=== PATIENT | female | born 1995 | race Caucasian/White ===

== ENCOUNTER 2019-05-17 20:23 | Emergency (ER) | payer BC ==
[2019-05-17 20:44] VITALS: BP 111/80
[2019-05-17] MEDS ORDERED: Ondansetron ODT TAB* 4 MG PO ONE (20:48)
--- NOTE | 2019-05-17 21:31 | UC ---
Nausea/Vomiting/Diarrhea HPI - HPI Summary HPI Summary: 23-year-old female who ate at a restaurant last evening approximate 6 hours following that she started having vomiting and diarrhea. She states she's had 7 bouts of vomiting and diarrhea in the past 24 hours. She does not feel like she is lightheaded or dizzy or going to pass out when she is walking. The last time that she had any diarrhea or vomiting was approximately one hour ago. She states today she has had mild burning on urination. - History of Current Complaint Chief Complaint: UCGI Stated Complaint: NAUSEA, POSS FOOD POISONING Time Seen by Provider: 05/17/19 21:06 Hx Obtained From: Patient Hx Last Menstrual Period: 05/10/19 ?: No Onset/Duration: Sudden Onset Timing: Intermittent Episodes Lasting: Severity Initially: Moderate Severity Currently: Mild Pain Intensity: 8 Location: Diffuse Character: Cramping - Patient is pain-free during the exam however she states prior to having a bout of diarrhea she does get abdominal cramping. Aggravating Factor(s): Nothing Alleviating Factor(s): Nothing Nausea/Vomiting Presence: Nauseated, Vomiting - Vomited approximate 1 hour prior to arrival. Vomiting Frequency: Every 3-4 hours Nausea/Vomiting Duration: 12-24 hours Diarrhea Presence: Yes Diarrhea Frequency: Every 3-4 hours Diarrhea Duration: 12-24 hours Diarrhea Characteristics: Watery - Allergies/Home Medications Allergies/Adverse Reactions: Allergies Allergy/AdvReac Type Severity Reaction Status Date / Time No Known Allergies Allergy Verified 05/17/19 20:44 Home Medications: Home Medications Control 1 tab PO DAILY 05/17/19 [History Confirmed 05/17/19] Sertraline* [Zoloft*] 50 mg PO DAILY 05/17/19 [History Confirmed 05/17/19] PMH/Surg Hx/FS Hx/Imm Hx Previously Healthy: Yes - Surgical History Surgical History: Yes Surgery Procedure, Year, and Place: wisdom teeth - Family History Known Family History: Positive: Non-Contributory - Social History Alcohol Use: None Substance Use Type: None Smoking Status (MU): Never Smoked Tobacco Review of Systems All Other Systems Reviewed And Are Negative: Yes Gastrointestinal: Positive: Abdominal Pain - Cramping abdominal pain prior to having bouts of diarrhea however upon my exam here she is pain-free., Vomiting, Diarrhea, Nausea Is Patient Immunocompromised?: No Physical Exam Triage Information Reviewed: Yes Appearance: Well-Appearing, No Pain Distress, Well-Nourished Vital Signs: Initial Vital Signs Temp 99.7 F 05/17/19 20:37 Pulse 97 05/17/19 20:37 Resp 16 05/17/19 20:37 BP 111/80 05/17/19 20:37 Pulse Ox 97 05/17/19 20:37 Vital Signs Reviewed: Yes Eyes: Positive: Conjunctiva Clear ENT: Positive: Hearing grossly normal, Pharynx normal, TMs normal, Uvula midline Neck: Positive: Supple, Nontender, No Lymphadenopathy Respiratory: Positive: Lungs clear, Normal breath sounds, No respiratory distress, No accessory muscle use Cardiovascular: Positive: RRR, No Murmur, Pulses Normal, Brisk Capillary Refill Abdomen Description: Positive: Nontender, No Organomegaly, Soft. Negative: CVA Tenderness (R), CVA Tenderness (L), Distended, Guarding, Hepatomegaly, McBurney' s Point Tenderness, Splenomegaly Bowel Sounds: Positive: Hyperactive Musculoskeletal Exam: Normal Neurological Exam: Normal Psychological Exam: Normal Skin Exam: Normal Naus/Vom/Diarrhea Course/Dx - Course Course Of Treatment: The patient received Zofran 4 mg by mouth here. Urinalysis showed some protein and bilirubin with a specific gravity of 1.030. Patient has been taking liquids here and retaining it. She was given Zofran 4 mg to take at home tonight if she has nausea. She may take loperamide as directed and definite follow up in the emergency room if she gets worse or she feels like she is going to pass out or feels lightheaded. Patient is agreement with this plan of action. - Differential Dx/Diagnosis Provider Diagnosis: Vomiting, Diarrhea Is Visit Related: No Condition At Discharge: Fair Discharge ED - Sign-Out/Discharge Documenting (check all that apply): Patient Departure All imaging exams completed and their final reports reviewed: No Studies - Discharge Plan Condition: Fair Disposition: HOME Prescriptions: Ondansetron TAB* [Zofran 4 MG Tab*] 4 mg PO Q6H PRN #10 tab PRN Reason: Nausea Patient Education Materials: Acute Nausea and Vomiting (ED), Acute Diarrhea (ED ) Referrals: [facility] [Outside] No Primary Care Phys,NOPCP [Primary Care Provider] - Additional Instructions: Clear liquids today, soup and crackers later today when you have no further vomiting then gradually increase to your regular diet. Avoid spicy or fatty foods today. Definite follow up with your primary care provider if no improvement in 1 day. Go to the ER if you feel like you are going to pass out or if you feel lightheaded or dizzy. - Billing Disposition and Condition Condition: FAIR Disposition: Home
[2019-05-17] MEDS ORDERED: Ondansetron ODT TAB* 4 MG SL ONE (21:51)
== END 2019-05-17 22:05 | disposition home or self-care (01) ==
LOC: UCEAST 20:23
DX: R19.7 Diarrhea, unspecified (principal); R11.2 Nausea with vomiting, unspecified; R10.9 Unspecified abdominal pain
CPT/HCPCS: 81003; 84702; 87045; 87046; 87328; 87329; 87899; 99202; A9270-GY; G0463

== ENCOUNTER 2019-05-20 09:35 | Emergency (ER) | payer BC ==
[2019-05-20] MEDS ORDERED: NS 0.9% 1000 ML** 1,000 ML IV ONE (10:34)
--- NOTE | 2019-05-20 11:55 | UC ---
Nausea/Vomiting/Diarrhea HPI - HPI Summary HPI Summary: She was seen here on the for nausea, vomiting and diarrhea. Cultures were sent at that time but have not returned. She was treated with Zofran and loperamide empirically. She has continued to have nausea vomiting diarrhea and is feeling quite bedraggled. - History of Current Complaint Chief Complaint: UCGI Stated Complaint: NAUSEA,CRAMPING,DIARRHEA Time Seen by Provider: 05/20/19 10:15 Hx Obtained From: Patient Hx Last Menstrual Period: 05/10/19 ?: No Onset/Duration: Gradual Onset Timing: Constant Severity Initially: Moderate Severity Currently: Severe Pain Intensity: 8 Character: Cramping Aggravating Factor(s): Nothing Alleviating Factor(s): Other: - Zofran helps with the nausea. Nausea/Vomiting Presence: Nauseated, Vomiting Vomiting Frequency: Every 1-2 hours Nausea/Vomiting Duration: 3-7 days Diarrhea Presence: Yes Diarrhea Frequency: Every 1-2 hours Diarrhea Characteristics: Watery - Allergies/Home Medications Allergies/Adverse Reactions: Allergies Allergy/AdvReac Type Severity Reaction Status Date / Time No Known Allergies Allergy Verified 05/20/19 10:09 Home Medications: Home Medications Loperamide CAP* [Imodium CAP*] 2 mg PO Q4H PRN 05/20/19 [History Confirmed 05/20] PMH/Surg Hx/FS Hx/Imm Hx Previously Healthy: Yes - Surgical History Surgical History: Yes Surgery Procedure, Year, and Place: wisdom teeth - Family History Known Family History: Positive: Non-Contributory - Social History Alcohol Use: None Substance Use Type: None Smoking Status (MU): Never Smoked Tobacco Review of Systems All Other Systems Reviewed And Are Negative: Yes Constitutional: Positive: Negative Skin: Positive: Negative Gastrointestinal: Positive: Abdominal Pain - Cramping, Vomiting, Diarrhea, Nausea Physical Exam - Summary Physical Exam Summary: She is nontoxic in appearance but looks ill. Her vitals are stable Triage Information Reviewed: Yes Appearance: Well-Appearing Vital Signs: Initial Vital Signs Temp 99.3 F 05/20/19 10:03 Pulse 87 05/20/19 10:03 Resp 18 05/20/19 10:03 BP 108/71 05/20/19 10:03 Pulse Ox 98 05/20/19 10:03 Eye Exam: Normal ENT Exam: Normal - Her mucous membranes are dry Neck exam: Normal Abdominal Exam: Other - All Mild diffuse tenderness. Skin Exam: Normal - 00 Naus/Vom/Diarrhea Course/Dx - Course Course Of Treatment: She was given a liter of normal saline here. She wants to be treated empirically for cryptosporidium and Salmonella. Both of these are, in general, self-limited diseases. It's reasonable and a severe case of Salmonella to treat with antibiotics. For an immunocompetent host cryptosporidium needs to have lasted a couple of weeks prior to treating with antiparasitic's. Cipro as a first line of treatment for Salmonella with azithromycin the alternative. Given the side effect profile of Cipro and the uncertainty of the diagnosis I wouldn't start with the azithromycin. - Differential Dx/Diagnosis Provider Diagnosis: Gastroenteritis Discharge ED - Sign-Out/Discharge Documenting (check all that apply): Patient Departure All imaging exams completed and their final reports reviewed: No Studies - Discharge Plan Condition: Stable Disposition: HOME Patient Education Materials: Gastroenteritis (ED) Referrals: No Primary Care Phys,NOPCP [Primary Care Provider] - Care [facility] [Outside] - Billing Disposition and Condition Condition: STABLE Disposition: Home
[2019-05-20 13:24] VITALS: BP 110/63
--- NOTE | 2019-05-20 17:50 | UC ---
- Progress Note Progress Note: She began use of azithromycin today for possible Salmonella/Campylobacter. Her cultures did not grow either of these, so it would be reasonable to HOLD treatment with the antibiotics, which could given her more prolonged diarrhea. GIARDIA and Crypto are still pending, but treatment of these organisms is different from what she was given. Course/Dx - Diagnoses Provider Diagnoses: Gastroenteritis Discharge ED - Sign-Out/Discharge Documenting (check all that apply): Post-Discharge Follow Up All imaging exams completed and their final reports reviewed: No Studies - Discharge Plan Condition: Stable Disposition: HOME Prescriptions: Azithromycin TAB* [Zithromax TAB (Z-BENY) 250 mg #6 tabs] 500 mg PO DAILY 7 Days #14 tab Ondansetron ODT TAB* [Zofran Odt TAB*] 4 mg PO Q6H PRN #20 tab.odt PRN Reason: Nausea/Vomiting Patient Education Materials: Gastroenteritis (ED) Forms: *Work Release Referrals: [facility] [Outside] No Primary Care Phys,NOPCP [Primary Care Provider] - - Billing Disposition and Condition Condition: STABLE Disposition: Home
--- NOTE | 2019-05-23 16:16 | UC ---
- Progress Note Progress Note: Please let her know that she has "indeterminate" crypto antgen and her sample is being sent for further testing, which will take days. If she is still having loose stools, can advise to use imodium and ensure keeps up with oral hydration. Course/Dx - Diagnoses Provider Diagnoses: Gastroenteritis Discharge ED - Sign-Out/Discharge Documenting (check all that apply): Post-Discharge Follow Up All imaging exams completed and their final reports reviewed: No Studies - Discharge Plan Condition: Stable Disposition: HOME Prescriptions: Azithromycin TAB* [Zithromax TAB (Z-BENY) 250 mg #6 tabs] 500 mg PO DAILY 7 Days #14 tab Ondansetron ODT TAB* [Zofran Odt TAB*] 4 mg PO Q6H PRN #20 tab.odt PRN Reason: Nausea/Vomiting Patient Education Materials: Gastroenteritis (ED) Forms: *Work Release Referrals: [facility] [Outside] No Primary Care Phys,NOPCP [Primary Care Provider] - - Billing Disposition and Condition Condition: STABLE Disposition: Home
== END 2019-05-20 12:59 | disposition home or self-care (01) ==
LOC: UCEAST 09:35
DX: K52.9 Noninfective gastroenteritis and colitis, unspecified (principal)
CPT/HCPCS: 96360; 99212; G0463